=== PATIENT | female | born 1970 ===

== ENCOUNTER 2016-11-25 17:52 | Emergency (ER) | payer OTHER ==
[2016-11-25 17:52] VITALS: BMI 35.4
[2016-11-25] MEDS ORDERED: Iohexol 240 (50 ml) PO STA (18:37)
[2016-11-25] MEDS ORDERED: Sodium Chloride 0.9% 1,000 ML IV ONE (18:37)
[2016-11-25] MEDS ORDERED: Iohexol 240 (50 ml) ONE (19:05)
[2016-11-25 19:25] LABS: RBC URINE 15 /hpf (0-3); URINE BACTERIA RARE (<OCC); URINE BILIRUBIN NEGATIVE (NEGATIVE); URINE BLOOD 2+ (NEGATIVE); URINE COLOR Yellow (YELLOW); URINE GLUCOSE (UA) NORMAL (Normal); URINE KETONE NEGATIVE (NEGATIVE); URINE PROTEIN NEGATIVE (NEGATIVE); URINE UROBILINOGEN NORMAL mg/dL (0.2-1.0); WBC URINE 3 /hpf (0-5)
[2016-11-25 19:28] LABS: URINE LEUKOCYTE ESTERASE NEGATIVE Leu/uL (Negative)
[2016-11-25] MEDS ORDERED: Sodium Chloride 0.9% 1,000 ML ONE (19:35)
[2016-11-25 19:51] LABS: BASO # 0.1 K/uL (0.0-0.2); BASO % 0.7 % (0.0-2.0); EOS # 0.2 K/uL (0.0-0.7); HEMATOCRIT 40.8 % (34.0-47.0); LYMPH % 35.9 % (20.0-40.0); MEAN CELL VOLUME 80.8 fL (81.0-99.0); MEAN CORPUSCULAR HGB CONC 34.7 g/dL (33.0-37.0); MEAN PLATELET VOLUME 7.8 fL (7.2-11.7); MONO # 0.6 K/uL (0.0-0.8); MONO % 7.3 % (0.0-10.0); NRBC % 0.1 % (0.0-2.0); RED CELL DISTRIBUTION WIDTH 14.5 % (11.5-14.5); WHITE BLOOD COUNT 8.2 K/uL (4.8-10.8)
[2016-11-25 19:56] VITALS: RESP 18
[2016-11-25 19:58] LABS: CHLORIDE 103 mmol/L (98-107); POTASSIUM 3.8 mmol/L (3.6-5.2); SODIUM 140 mmol/L (132-148)
[2016-11-25 20:00] LABS: ALB/GLOB RATIO 1.2 (1.0-2.1); ALKALINE PHOSPHATASE 88 U/L (38-126); AST/SGOT 32 U/L (14-36); BILIRUBIN,TOTAL 0.9 mg/dL (0.2-1.3); CARBON DIOXIDE 24 mmol/L (22-30); GFR AFRICAN-AMERICAN > 60; TOTAL PROTEIN 7.5 g/dL (6.3-8.3)
[2016-11-25 20:01] LABS: ALT/SGPT 65 U/L (9-52); BLOOD UREA NITROGEN 11 mg/dL (7-17); CALCIUM 9.3 mg/dl (8.6-10.4); GLUCOSE,RANDOM 83 mg/dL (65-105)
[2016-11-25] MEDS ORDERED: Iohexol 350mg/ml 100 ML ONE (20:22)
--- NOTE | 2016-11-25 21:07 | C.PDOC ---
History Of Present Illness 46 year old female presents to the ED with complaints of left sided abdominal pain with associated mild nausea for two says. Patient notes a slight decrease in PO intake and denies dysuria, hematuria, fever, cough, or vomiting. Time Seen by Provider: 11/25/16 18:25 Chief Complaint (Nursing): Abdominal Pain History Per: Patient History/Exam Limitations: no limitations Onset/Duration Of Symptoms: Days (2 days ) Current Symptoms Are (Timing): Still Present Location Of Pain/Discomfort: LUQ, LLQ Radiation Of Pain To:: None Quality Of Discomfort: "Pain" Associated Symptoms: Nausea. denies: Fever, Chills, Vomiting Recent travel outside of the [place]: No Abnormal Vaginal Bleeding: No Past Medical History Reviewed: Historical Data, Nursing Documentation, Vital Signs Vital Signs: Last Vital Signs Temp 97.7 F 11/25/16 22:10 Pulse 67 11/25/16 22:10 Resp 18 11/25/16 22:10 BP 155/84 H 11/25/16 22:10 Pulse Ox 98 11/25/16 22:10 - Medical History PMH: Pancreatitis Surgical History: Appendectomy, Cholecystectomy Family History: States: Unknown Family Hx - Social History Hx Alcohol Use: No Hx Substance Use: No - Immunization History Hx Tetanus Toxoid Vaccination: No Hx Influenza Vaccination: No Hx Pneumococcal Vaccination: No Review Of Systems Constitutional: Positive for: Other (Slight decrease in PO intake ). Negative for: Fever, Chills Cardiovascular: Negative for: Chest Pain Respiratory: Negative for: Cough, Shortness of Breath Gastrointestinal: Positive for: Nausea. Negative for: Vomiting Genitourinary: Negative for: Dysuria, Hematuria Physical Exam - Physical Exam Appears: Non-toxic, No Acute Distress Skin: Warm, Dry Head: Atraumatic Eye(s): bilateral: Normal Inspection Oral Mucosa: Moist Neck: Supple Chest: Symmetrical, No Deformity Cardiovascular: Rhythm Regular Respiratory: Normal Breath Sounds, No Rales, No Rhonchi, No Wheezing Gastrointestinal/Abdominal: Soft, Tenderness (left sided abdominal tenderness), No Distention, No Guarding, No Rebound ED Course And Treatment - Laboratory Results Result Diagrams: 11/25/16 19:42 11/25/16 19:42 O2 Sat by Pulse Oximetry: 100 (room air ) - CT Scan/US Abdomen Pelvis CT Other Rad Studies (CT/US): Read By Radiologist, Radiology Report Reviewed Progress Note: Abdomen Pelvis CT and urine culture were ordered. Patient was given Pepcid, Zofran, Iohexol, and IV fluids. Disposition - Disposition Referrals: Janet Kilpatrick, [Non-Staff] - Disposition: HOME/ ROUTINE Disposition Time: 21:40 Condition: GOOD Additional Instructions: Thank you for letting us take care of you today. Your provider was Dr. Dos Santos. You were treated for abdominal pain. The emergency medical care you received today was directed at your acute symptoms. If you were prescribed any medication, please fill it and take as directed. It may take several days for your symptoms to resolve. Return to the Emergency Department if your symptoms worsen, do not improve, or if you have any other problems. Please contact your doctor or call one of the physicians/clinics you have been referred to that are listed on the Patient Visit Information form that is included in your discharge packet. Bring any paperwork you were given at discharge with you along with any medications you are taking to your follow up visit. Our treatment cannot replace ongoing medical care by a primary care provider (PCP) outside of the emergency department. Thank you for allowing [facility] to [facility] of your care today. Follow up with your doctor in 2-3 days for re-evaluation and further management. Prescriptions: Ranitidine HCl [Zantac] 150 mg PO BID #20 tablet Instructions: Abdominal Pain (ED) Forms: Gen Discharge Inst Vietnamese Print Language: GUAMANIAN - Clinical Impression Clinical Impression: Abdominal pain - Scribe Statement The provider has reviewed the documentation as recorded by the Scribe Madyson Moyer All medical record entries made by the Jazminibharry were at my direction and personally dictated by me. I have reviewed the chart and agree that the record accurately reflects my personal performance of the history, physical exam, medical decision making, and the department course for this patient. I have also personally directed, reviewed, and agree with the discharge instructions and disposition.
--- NOTE | 2016-11-25 21:38 | CT ---
EXAM: CT Abdomen and Pelvis With Intravenous Contrast CLINICAL HISTORY: 46 years old, female; Pain; Abdominal pain; Flank; Left upper quadrant (luq); Additional info: Left sided abdominal pain (luq>llq) TECHNIQUE: Axial computed tomography images of the abdomen and pelvis with intravenous contrast. All CT scans at this facility use one or more dose reduction techniques, viz.: automated exposure control; ma/kV adjustment per patient size (including targeted exams where dose is matched to indication; i.e. head); or iterative reconstruction technique. Coronal and sagittal reformatted images were created and reviewed. CONTRAST: 100 mL of VISIPAQUE 320 administered intravenously. COMPARISON: No relevant prior studies available. FINDINGS: Lower thorax: Mild cardiomegaly. ABDOMEN: Liver: Mild fatty infiltration. Gallbladder and bile ducts: Cholecystectomy. No ductal dilation. Pancreas: No ductal dilation. No mass. Spleen: No splenomegaly. Adrenals: No mass. Kidneys and ureters: No mass. No hydronephrosis. Stomach and bowel: Descending and distal transverse colon within RIGHT abdomen. No definite mural thickening. No obstruction. Appendix: No findings to suggest acute appendicitis. PELVIS: Bladder: Unremarkable. Reproductive: Hysterectomy. 1.8 x 1.8 x 1.7 cm hypodense lesion within LEFT ovary. ABDOMEN and PELVIS: Intraperitoneal space: No significant fluid collection. No free air. Bones/joints: No acute fracture. Soft tissues: Small ventral hernia through RIGHT rectus abdominis muscle containing fat. Partial atrophy of RIGHT rectus abdominis muscle. Vasculature: Unremarkable. No aneurysm. Lymph nodes: No pathologically enlarged lymph nodes. IMPRESSION: 1. Probable LEFT ovarian cyst. Consider ultrasound. 2. Incidental/non-acute findings are described above.
[2016-11-25 22:11] VITALS: BP 155/84; PULSE 67; TEMP 97.7
[2016-11-25 22:36] VITALS: O2SAT 100
== END 2016-11-25 22:15 | disposition home or self-care (01) ==
LOC: C.ER 17:52
DX: R10.9 Unspecified abdominal pain (principal)
CPT/HCPCS: 74177; 80053; 81001; 83690; 85025; 87086; 96361; 96374; 96375; 99285; J2405; J7040; Q9966; Q9967

== ENCOUNTER 2016-12-26 15:56 | Emergency (ER) | payer OTHER ==
[2016-12-26 15:56] VITALS: BMI 35.4
[2016-12-26] MEDS ORDERED: Sodium Chloride 0.9% 1,000 ML ONE (16:53)
[2016-12-26] MEDS ORDERED: Sodium Chloride 0.9% 1,000 ML IV ONE (17:05)
[2016-12-26] MEDS ORDERED: Morphine 4 MG/ML VIAL ONE (17:11)
[2016-12-26 17:12] LABS: BASO # 0.1 K/uL (0.0-0.2); BASO % 0.6 % (0.0-2.0); EOS # 0.1 K/uL (0.0-0.7); EOS % 0.8 % (0.0-4.0); HEMATOCRIT 39.2 % (34.0-47.0); LYMPH # 2.5 K/uL (1.0-4.3); LYMPH % 31.1 % (20.0-40.0); MEAN CELL VOLUME 82.7 fL (81.0-99.0); MEAN CORPUSCULAR HEMOGLOBIN 28.8 pg (27.0-31.0); MEAN CORPUSCULAR HGB CONC 34.8 g/dL (33.0-37.0); MEAN PLATELET VOLUME 8.2 fL (7.2-11.7); MONO # 0.8 K/uL (0.0-0.8); MONO % 9.4 % (0.0-10.0); NRBC % 0.1 % (0.0-2.0); RED CELL DISTRIBUTION WIDTH 14.5 % (11.5-14.5); WHITE BLOOD COUNT 8.2 K/uL (4.8-10.8)
[2016-12-26 17:18] LABS: CHLORIDE 103 mmol/L (98-107); POTASSIUM 3.5 mmol/L (3.6-5.2); SODIUM 138 mmol/L (132-148)
[2016-12-26 17:20] LABS: BILIRUBIN,TOTAL 0.5 mg/dL (0.2-1.3); GFR AFRICAN-AMERICAN > 60
[2016-12-26 17:21] LABS: ALB/GLOB RATIO 1.4 (1.0-2.1); ALKALINE PHOSPHATASE 55 U/L (38-126); ALT/SGPT 43 U/L (9-52); AST/SGOT 24 U/L (14-36); BLOOD UREA NITROGEN 9 mg/dL (7-17); CALCIUM 8.7 mg/dl (8.6-10.4); CARBON DIOXIDE 21 mmol/L (22-30); GLUCOSE,RANDOM 89 mg/dL (65-105)
--- NOTE | 2016-12-26 17:32 | C.PDOC ---
History Of Present Illness 46 yr old female presents to the ER with complaints of abdominal pain with nausea and diarrhea since yesterday. Patient reports she has history of chronic Pancreatitis, states the pain feels similar. Patient denies fever, chills, chest pain, SOB, nausea, vomiting, dysuria, incontinence, weakness or numbness. Time Seen by Provider: 12/26/16 16:37 Chief Complaint (Nursing): Abdominal Pain History Per: Patient History/Exam Limitations: no limitations Onset/Duration Of Symptoms: Days (1) Current Symptoms Are (Timing): Still Present Past Medical History Reviewed: Historical Data, Nursing Documentation, Vital Signs Vital Signs: Last Vital Signs Temp 98.8 F 12/26/16 16:17 Pulse 87 12/26/16 16:17 Resp 18 12/26/16 16:17 BP 164/96 H 12/26/16 16:17 Pulse Ox 99 12/26/16 17:35 - Medical History PMH: Pancreatitis Surgical History: Appendectomy, Cholecystectomy Family History: States: No Known Family Hx - Social History Hx Alcohol Use: No Hx Substance Use: No - Immunization History Hx Tetanus Toxoid Vaccination: No Hx Influenza Vaccination: No Hx Pneumococcal Vaccination: No Review Of Systems Except As Marked, All Systems Reviewed And Found Negative. Constitutional: Negative for: Fever, Chills Cardiovascular: Negative for: Chest Pain Respiratory: Negative for: Shortness of Breath Gastrointestinal: Positive for: Abdominal Pain. Negative for: Nausea, Vomiting Genitourinary: Negative for: Dysuria, Incontinence Neurological: Negative for: Weakness, Numbness Physical Exam - Physical Exam Appears: Non-toxic, In Acute Distress (Mild pain) Skin: Warm, Dry, No Rash Head: Atraumatic, Normacephalic Chest: Symmetrical, No Tenderness Cardiovascular: Rhythm Regular, No Murmur Respiratory: Normal Breath Sounds, No Rales, No Rhonchi, No Wheezing Gastrointestinal/Abdominal: Soft, Tenderness (Epigastric and LUQ tenderness. ), No Guarding, No Rebound, Other ((-) Ventura signs) Back: Normal Inspection, No CVA Tenderness Extremity: Normal ROM, No Swelling Neurological/Psych: Oriented x3, Normal Speech, Normal Motor, Normal Sensation ED Course And Treatment - Laboratory Results Result Diagrams: 12/26/16 17:00 12/26/16 17:00 O2 Sat by Pulse Oximetry: 99 (RA) Pulse Ox Interpretation: Normal Progress Note: PLAN: CBC, CMP, HCG, Urinalysis, Morphine IVP, Zofran IVP & Sodium Chloride IV. Disposition Counseled Patient/Family Regarding: Studies Performed, Diagnosis, Need For Followup, Rx Given - Disposition Referrals: Angel Luis Bledsoe MD [Medical Doctor] - Disposition: HOME/ ROUTINE Disposition Time: 18:50 Condition: STABLE Additional Instructions: SEGUIMIENTO CON ALONSO MDICO EN 1-2 LAI USE EL MEDICAMENTO DEL DOLOR STEFANO SE NECESITA BEBER MUCHO LQUIDO REGRESE A LA HABITACIN DE EMERGENCIA SI VIOLETA SNTOMAS EMPEORARAN Prescriptions: Acetaminophen with Codeine [Tylenol with Codeine #3 Tablet] 1 each PO Q6 PRN # 12 tablet PRN Reason: pain Instructions: Abdominal Pain (ED) Forms: [employer] (Congolese) Print Language: THAI - POA Present On Arrival: None - Clinical Impression Clinical Impression: Chronic pancreatitis - Scribe Statement The provider has reviewed the documentation as recorded by the Jazminibharry Pryor Provider Attestation: All medical record entries made by the Scribe were at my direction and personally dictated by me. I have reviewed the chart and agree that the record accurately reflects my personal performance of the history, physical exam, medical decision making, and the department course for this patient. I have also personally directed, reviewed, and agree with the discharge instructions and disposition.
[2016-12-26 17:34] LABS: RBC URINE 18 /hpf (0-3); URINE BACTERIA RARE (<OCC); URINE BILIRUBIN NEGATIVE (NEGATIVE); URINE BLOOD 2+ (NEGATIVE); URINE COLOR Yellow (YELLOW); URINE GLUCOSE (UA) NORMAL (Normal); URINE KETONE NEGATIVE (NEGATIVE); URINE LEUKOCYTE ESTERASE NEG Leu/uL (Negative); URINE PROTEIN NEGATIVE (NEGATIVE); URINE UROBILINOGEN NORMAL mg/dL (0.2-1.0); WBC URINE 1 /hpf (0-5)
[2016-12-26 18:58] VITALS: BP 144/91; PULSE 67; RESP 20; TEMP 97.7; O2SAT 100
== END 2016-12-26 18:58 | disposition home or self-care (01) ==
LOC: C.ER 15:56
DX: K86.1 Other chronic pancreatitis (principal)
CPT/HCPCS: 80053; 81001; 83690; 84703; 85025; 96361; 96374; 96375; 99285; J2270; J2405; J7040

== ENCOUNTER 2017-03-16 20:22 | Emergency (ER) | payer OTHER ==
[2017-03-16 20:22] VITALS: BMI 35.4
[2017-03-16] MEDS ORDERED: Sodium Chloride 0.9% 1,000 ML IV ONE (21:01)
[2017-03-16] MEDS ORDERED: Sodium Chloride 0.9% 1,000 ML ONE (21:02)
[2017-03-16] MEDS ORDERED: Morphine 4 MG/ML VIAL ONE (21:04)
[2017-03-16 21:14] LABS: BASO # 0.1 K/uL (0.0-0.2); BASO % 0.6 % (0.0-2.0); EOS # 0.1 K/uL (0.0-0.7); EOS % 0.8 % (0.0-4.0); HEMATOCRIT 43.8 % (34.0-47.0); LYMPH # 2.2 K/uL (1.0-4.3); LYMPH % 13.8 % (20.0-40.0); MEAN CELL VOLUME 82.2 fL (81.0-99.0); MEAN CORPUSCULAR HEMOGLOBIN 29.1 pg (27.0-31.0); MEAN CORPUSCULAR HGB CONC 35.4 g/dL (33.0-37.0); RED CELL DISTRIBUTION WIDTH 14.1 % (11.5-14.5); WHITE BLOOD COUNT 15.9 K/uL (4.8-10.8)
[2017-03-16 21:25] LABS: ALKALINE PHOSPHATASE 66 U/L (38-126); ALT/SGPT 56 U/L (9-52); AST/SGOT 45 U/L (14-36); BILIRUBIN,TOTAL 0.8 mg/dL (0.2-1.3); BLOOD UREA NITROGEN 14 mg/dL (7-17); CALCIUM 8.7 mg/dl (8.6-10.4); CARBON DIOXIDE 25 mmol/L (22-30); CHLORIDE 99 mmol/L (98-107); GFR AFRICAN-AMERICAN > 60; GLUCOSE,RANDOM 105 mg/dL (65-105); SODIUM 134 mmol/L (132-148)
[2017-03-16 21:27] LABS: ALB/GLOB RATIO 1.1 (1.0-2.1)
[2017-03-16 21:28] LABS: RBC URINE 14 /hpf (0-3); URINE BACTERIA MOD (<OCC); URINE BILIRUBIN NEGATIVE (NEGATIVE); URINE BLOOD 3+ (NEGATIVE); URINE COLOR Yellow (YELLOW); URINE GLUCOSE (UA) NORMAL (Normal); URINE KETONE TRACE mg/dL (NEGATIVE); URINE LEUKOCYTE ESTERASE NEG Leu/uL (Negative); URINE PROTEIN 1+ mg/dL (NEGATIVE); WBC URINE 3 /hpf (0-5)
--- NOTE | 2017-03-16 23:18 | CT ---
EXAM: CT Abdomen and Pelvis Without Intravenous Contrast CLINICAL HISTORY: 46 years old, female; Pain; Abdominal pain; Flank; Left lower quadrant (llq); Additional info: Luq/left flank pain. H/o pancreatitis. TECHNIQUE: Axial computed tomography images of the abdomen and pelvis without intravenous contrast. All CT scans at this facility use one or more dose reduction techniques, viz.: automated exposure control; ma/kV adjustment per patient size (including targeted exams where dose is matched to indication; i.e. head); or iterative reconstruction technique. Coronal and sagittal reformatted images were created and reviewed. COMPARISON: CT - ABD PELVIS PO IV CONTRAST 2016-11-25 20:58 FINDINGS: Lower thorax: Minimal atelectasis/scarring. ABDOMEN: Liver: Unremarkable. Gallbladder and bile ducts: Cholecystectomy. No significant ductal dilation. Pancreas: Unremarkable. No ductal dilation. Spleen: No splenomegaly. Adrenals: No mass. Kidneys and ureters: No renal calculi. No hydronephrosis. Stomach and bowel: Descending and distal transverse colon within right abdomen. Fluid within small bowel. Fluid/loose stool within colon. No definite mural thickening. No obstruction. Appendix: No findings to suggest acute appendicitis. PELVIS: Bladder: Unremarkable. No stones. Reproductive: Hysterectomy. 1.9 x 1.6 by 1.9 cm hypodense lesion within RIGHT ovary. ABDOMEN and PELVIS: Intraperitoneal space: No significant fluid collection. No free air. Bones/joints: No acute fracture. Soft tissues: Small ventral hernia containing fat. Partial atrophy of rectus abdominous muscle. Vasculature: Unremarkable. No aneurysm. Lymph nodes: No pathologically enlarged lymph nodes. IMPRESSION: 1. No definite CT evidence of urolithiasis. 2. Probable RIGHT ovarian cyst. Consider ultrasound. 3. Fluid/loose stool within bowel may suggest diarrhea illness. 4. Incidental/non-acute findings are described above.
--- NOTE | 2017-03-16 23:47 | C.PDOC ---
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 Limitations: language barrier Onset/Duration Of Symptoms: Days (1) Current Symptoms Are (Timing): Still Present Location Of Pain/Discomfort: LUQ, LLQ Radiation Of Pain To:: Back Quality Of Discomfort: Unable To Describe, "Pain" Associated Symptoms: Nausea, Vomiting, Diarrhea Alleviating Factors: None Last Bowel Movement: Today Additional History Per: Prior Records Past Medical History Reviewed: Historical Data, Nursing Documentation, Vital Signs Vital Signs: Last Vital Signs Temp 97.8 F 03/16/17 20:28 Pulse 98 H 03/16/17 20:28 Resp 18 03/16/17 20:28 BP 137/94 H 03/16/17 20:28 Pulse Ox 96 03/16/17 23:47 - Medical History PMH: Pancreatitis Surgical History: Appendectomy, Cholecystectomy Other Surgeries: Hysterectomy Family History: States: Unknown Family Hx - Social History Hx Alcohol Use: No Hx Substance Use: No - Immunization History Hx Tetanus Toxoid Vaccination: No Hx Influenza Vaccination: No Hx Pneumococcal Vaccination: No Review Of Systems Except As Marked, All Systems Reviewed And Found Negative. Constitutional: Positive for: Chills Cardiovascular: Negative for: Chest Pain Respiratory: Negative for: Shortness of Breath Gastrointestinal: Positive for: Nausea, Vomiting, Abdominal Pain, Diarrhea. Negative for: Melena, Hematochezia, Hematemesis Genitourinary: Positive for: Dysuria (?) Musculoskeletal: Positive for: Back Pain. Negative for: Neck Pain Skin: Negative for: Rash Neurological: Negative for: Weakness, Numbness Physical Exam - Physical Exam Appears: Non-toxic, No Acute Distress Skin: Normal Color, Warm, Dry, No Rash Head: Atraumatic, Normacephalic Eye(s): bilateral: PERRL, EOMI Neck: Normal ROM, Supple Cardiovascular: Rhythm Regular Respiratory: Normal Breath Sounds, No Accessory Muscle Use Gastrointestinal/Abdominal: Soft, Tenderness (left sided), No Guarding, No Rebound Extremity: Normal ROM Neurological/Psych: Oriented x3, Normal Motor, Normal Sensation ED Course And Treatment - Laboratory Results Result Diagrams: 03/16/17 21:11 03/16/17 21:11 O2 Sat by Pulse Oximetry: 96 Pulse Ox Interpretation: Normal - CT Scan/US CT abd/pelv Other Rad Studies (CT/US): Read By Radiologist, Radiology Report Reviewed CT/US Interpretation: IMPRESSION: 1. No definite CT evidence of urolithiasis. 2. Probable RIGHT ovarian cyst. Consider ultrasound. 3. Fluid/loose stool within bowel may suggest diarrhea illness. 4. Incidental/non-acute findings are described above. Progress - Interventions Interventions:: Observation, Intravenous fluid - Medications Administered Intravenous: Antiemetic, H-2 lauren, Opiate - Data Reviewed Data Reviewed: Lab, Diagnostic imaging, Old records - Patient Status Patient status: Mostly improved - Continuity of Care Discussed patient case with:: Patient, ED Nurse - Patient Plan Patient Plan: Discharge, F/U with PCP, Continue present meds Disposition Counseled Patient/Family Regarding: Studies Performed, Diagnosis, Need For Followup, Rx Given - Disposition Referrals: Angel Luis Bledsoe MD [Medical Doctor] - Disposition: HOME/ ROUTINE Disposition Time: 00:19 Condition: IMPROVED Additional Instructions: Drink plenty of fluids. Follow up with your doctor this week. Return to the ER if you develop fever, not tolerating fluids, bloody stools, worsening of symptoms or if you have any other concerns. Prescriptions: Dicyclomine [Bentyl] 20 mg PO QID PRN #20 tab PRN Reason: Irritable Bowel Symptoms Ondansetron [Zofran] 4 mg PO Q8H PRN #15 tab PRN Reason: Nausea/Vomiting Instructions: Gastroenteritis (ED) Forms: [employer] (Tuvaluan) Print Language: THAI - Clinical Impression Clinical Impression: Left sided abdominal pain, Nausea, vomiting, and diarrhea
[2017-03-17 00:46] VITALS: BP 130/90; PULSE 80; RESP 20; TEMP 98; O2SAT 98
== END 2017-03-17 00:45 | disposition home or self-care (01) ==
LOC: C.ER 20:22
DX: R10.12 Left upper quadrant pain (principal); R11.2 Nausea with vomiting, unspecified; R19.7 Diarrhea, unspecified
CPT/HCPCS: 74176; 80053; 81001; 83690; 85025; 87086; 96374; 96375; 99285; J2270; J2405; J7040

== ENCOUNTER 2017-05-29 09:49 | Emergency (ER) | payer OTHER ==
[2017-05-29 09:49] VITALS: BMI 35.4
[2017-05-29 10:04] VITALS: O2SAT 100
[2017-05-29] MEDS ORDERED: Sodium Chloride 0.9% 1,000 ML IV ONE (11:06)
[2017-05-29 11:17] LABS: BASO % 0.6 % (0.0-2.0); EOS # 0.1 K/uL (0.0-0.7); EOS % 1.2 % (0.0-4.0); HEMOGLOBIN 14.9 g/dL (11.0-16.0); LYMPH # 2.3 K/uL (1.0-4.3); LYMPH % 37.1 % (20.0-40.0); MEAN CELL VOLUME 82.5 fL (81.0-99.0); MEAN CORPUSCULAR HEMOGLOBIN 29.1 pg (27.0-31.0); MEAN CORPUSCULAR HGB CONC 35.3 g/dL (33.0-37.0); MEAN PLATELET VOLUME 8.2 fL (7.2-11.7); MONO # 0.6 K/uL (0.0-0.8); MONO % 8.9 % (0.0-10.0); NEUT # 3.2 K/uL (1.8-7.0); NEUT % 52.2 % (50.0-75.0); RBC 5.11 Mil/uL (3.80-5.20); RED CELL DISTRIBUTION WIDTH 14.2 % (11.5-14.5); WHITE BLOOD COUNT 6.2 K/uL (4.8-10.8)
[2017-05-29] MEDS ORDERED: Sodium Chloride 0.9% 1,000 ML ONE (11:17)
[2017-05-29 11:20] LABS: HCG,QUALITATIVE URINE NEGATIVE (NEGATIVE)
[2017-05-29 11:29] LABS: SQUAMOUS EPITHIAL 12 /hpf (0-5); URINE BACTERIA MANY (<OCC); URINE BILIRUBIN NEGATIVE (NEGATIVE); URINE BLOOD 2+ (NEGATIVE); URINE CLARITY Hazy (Clear); URINE GLUCOSE (UA) NORMAL (Normal); URINE LEUKOCYTE ESTERASE NEG Leu/uL (Negative); URINE NITRATE NEGATIVE (NEGATIVE); URINE PROTEIN NEGATIVE (NEGATIVE); URINE UROBILINOGEN NORMAL mg/dL (0.2-1.0)
--- NOTE | 2017-05-29 11:29 | C.PDOC ---
History Of Present Illness 46 year old female with a past medical history of pancreatitis who presents to the emergency department with a complaint of an abdominal pain, diarrhea, and nausea x2 days. Associated with a headache and loss of appetite. Reports she follows up with the [facility]. Denies history of abdominal surgery, chest pain, shortness of breath, and urinary symptoms. Time Seen by Provider: 05/29/17 10:23 Chief Complaint (Nursing): Abdominal Pain History Per: Patient History/Exam Limitations: no limitations Onset/Duration Of Symptoms: Days Past Medical History Reviewed: Historical Data, Nursing Documentation, Vital Signs Vital Signs: Last Vital Signs Temp 97.7 F 05/29/17 12:22 Pulse 64 05/29/17 12:22 Resp 18 05/29/17 12:22 BP 157/82 H 05/29/17 12:22 Pulse Ox 100 05/29/17 13:10 - Medical History PMH: Pancreatitis Denies: Chronic Kidney Disease Surgical History: Appendectomy, Cholecystectomy Family History: States: Unknown Family Hx - Social History Hx Alcohol Use: No Hx Substance Use: No - Immunization History Hx Tetanus Toxoid Vaccination: No Hx Influenza Vaccination: No Hx Pneumococcal Vaccination: No Review Of Systems Except As Marked, All Systems Reviewed And Found Negative. (As per HPI, otherwise negative) Constitutional: Positive for: Other (Loss of appetite) Cardiovascular: Negative for: Chest Pain Respiratory: Negative for: Shortness of Breath Gastrointestinal: Positive for: Nausea, Abdominal Pain, Diarrhea Genitourinary: Negative for: Dysuria, Frequency, Incontinence, Hematuria Neurological: Positive for: Headache Physical Exam - Physical Exam Appears: Well, Non-toxic Skin: Normal Color, Warm, Dry Cardiovascular: Rhythm Regular, No Murmur Respiratory: Normal Breath Sounds, No Decreased Breath Sounds, No Accessory Muscle Use, No Rhonchi Gastrointestinal/Abdominal: No Normal Exam, Bowel Sounds (Positive), Soft, Tenderness (epigastric and LUQ), No Guarding, No Rebound Neurological/Psych: Oriented x3 Gait: Steady ED Course And Treatment - Laboratory Results Result Diagrams: 05/29/17 11:11 05/29/17 11:11 ECG Rhythm: Sinus Rhythm (Normal 80 bpm. Normal interval. Normal axis. ), Nonspecific Changes (ST or T wave changes) O2 Sat by Pulse Oximetry: 100 (RA) Pulse Ox Interpretation: Normal Medical Decision Making Medical Decision Making: Time: 1100 EKG CMP Lipase Troponin I CBC w/ diff Pantoprazole 40 mg IVP Sodium Chloride 1L IV Toradol 30 mg IVP Urine Preg Urinalysis Obstructive series Reevaluation Time: 1215 --Obstructive series x-ray FINDINGS: CHEST: Lungs: Clear. Cardiovascular: Normal size heart. No pulmonary vascular congestion. Pleura: No pleural fluid. No pneumothorax. Other findings: None. ABDOMEN AND PELVIS: Bowel: Unremarkable bowel gas pattern. No evidence of mechanical obstruction. Free air: None. Bones: Unremarkable. Other findings: Right upper quadrant surgical clips. IMPRESSION: Unremarkable radiographs of chest and abdomen. No evidence of mechanical bowel obstruction. patient states improvement. Will discharge home to follow up with pmd in 2 days. Disposition - Disposition Referrals: Angel Luis Bledsoe MD [Medical Doctor] - Disposition: HOME/ ROUTINE Disposition Time: 13:09 Condition: STABLE Additional Instructions: follow up with your doctor or medical clinic in 2 days call to make an appointment take medication as prescribed return to ER if symptoms worsens or progress Prescriptions: Ondansetron ODT [Zofran ODT] 4 mg PO TID PRN #12 odt PRN Reason: Nausea/Vomiting traMADol [Ultram] 50 mg PO TID PRN #12 tab PRN Reason: Pain, Moderate (4-7) Instructions: Acute Abdomen (Belly Pain), Adult (DC) Forms: Gen Discharge Inst Albanian, [employer] (Albanian) Print Language: MACEDONIAN - Clinical Impression Clinical Impression: Abdominal pain - Scribe Statement Katarina Hull
[2017-05-29 11:33] LABS: URINE COLOR YELLOW (YELLOW)
[2017-05-29 11:38] LABS: ALB/GLOB RATIO 1.3 (1.0-2.1); ALBUMIN 4.6 g/dL (3.5-5.0); ALT/SGPT 70 U/L (9-52); AST/SGOT 57 U/L (14-36); BLOOD UREA NITROGEN 11 mg/dL (7-17); CALCIUM 9.4 mg/dl (8.6-10.4); GFR AFRICAN-AMERICAN > 60; GFR NON-AFRICAN AMERICAN > 60; LIPASE 100 U/L (23-300)
--- NOTE | 2017-05-29 12:17 | RAD ---
PROCEDURE: Radiographs of the chest and abdomen (obstructive series) HISTORY: abd. pain COMPARISON: Chest radiograph dated 12/13/2015; CT scan of the abdomen and pelvis dated 03/16/2017. TECHNIQUE: AP radiograph of the chest, with upright and supine radiographs of the abdomen. FINDINGS: CHEST: Lungs: Clear. Cardiovascular: Normal size heart. No pulmonary vascular congestion. Pleura: No pleural fluid. No pneumothorax. Other findings: None. ABDOMEN AND PELVIS: Bowel: Unremarkable bowel gas pattern. No evidence of mechanical obstruction. Free air: None. Bones: Unremarkable. Other findings: Right upper quadrant surgical clips. IMPRESSION: Unremarkable radiographs of chest and abdomen. No evidence of mechanical bowel obstruction.
[2017-05-29 12:23] VITALS: BP 157/82; PULSE 64; RESP 18; TEMP 97.7
== END 2017-05-29 13:35 | disposition home or self-care (01) ==
LOC: C.ER 09:49
DX: R10.9 Unspecified abdominal pain (principal)
CPT/HCPCS: 74022; 80053; 81001; 83690; 84484; 84703; 85025; 96361; 96374; 96375; 99285; C9113; J1885; J7040

== ENCOUNTER 2017-10-28 18:18 | Emergency (ER) | payer OTHER ==
[2017-10-28 18:25] VITALS: BMI 36.2
[2017-10-28 19:13] LABS: SQUAMOUS EPITHIAL 2 /hpf (0-5); URINE BACTERIA RARE (<OCC); URINE BILIRUBIN NEGATIVE (NEGATIVE); URINE BLOOD 2+ (NEGATIVE); URINE CLARITY Clear (Clear); URINE COLOR Yellow (YELLOW); URINE GLUCOSE (UA) NORMAL (Normal); URINE LEUKOCYTE ESTERASE NEG Leu/uL (Negative); URINE PROTEIN NEGATIVE (NEGATIVE); URINE UROBILINOGEN NORMAL mg/dL (0.2-1.0)
[2017-10-28 19:14] LABS: HCG,QUALITATIVE URINE NEGATIVE (NEGATIVE)
[2017-10-28] MEDS ORDERED: Sodium Chloride 0.9% 1,000 ML IV ONE (19:39)
--- NOTE | 2017-10-28 19:39 | C.PDOC ---
History Of Present Illness 47 year old female with PMHx of pancreatitis presents to the ED c/o epigastric abdominal pain that started today at 14:30. Patient states with her pain she had associated diarrhea and nausea. Patient has multiple visits to the ED for similar symptoms in the past. Patient denies fever, chills, vomit, back pain, dysuria, hemturia. Time Seen by Provider: 10/28/17 19:19 Chief Complaint (Nursing): Abdominal Pain History Per: Patient History/Exam Limitations: no limitations Onset/Duration Of Symptoms: Hrs (14:30) Current Symptoms Are (Timing): Still Present Severity: Moderate Location Of Pain/Discomfort: Epigastric Radiation Of Pain To:: None Quality Of Discomfort: "Pain" Associated Symptoms: Nausea, Diarrhea Alleviating Factors: None Recent travel outside of the [place]: No Additional History Per: Patient Abnormal Vaginal Bleeding: No Past Medical History Reviewed: Historical Data, Nursing Documentation, Vital Signs Vital Signs: Last Vital Signs Temp 98.4 F 10/28/17 18:25 Pulse 73 10/28/17 18:25 Resp 18 10/28/17 18:25 BP 137/87 10/28/17 18:25 Pulse Ox 98 10/28/17 21:37 - Medical History PMH: Pancreatitis Denies: Chronic Kidney Disease Surgical History: Appendectomy, Cholecystectomy Family History: States: Unknown Family Hx - Social History Hx Alcohol Use: No Hx Substance Use: No - Immunization History Hx Tetanus Toxoid Vaccination: No Hx Influenza Vaccination: No Hx Pneumococcal Vaccination: No Review Of Systems Constitutional: Negative for: Fever, Chills Cardiovascular: Negative for: Chest Pain, Palpitations Respiratory: Negative for: Cough, Shortness of Breath Gastrointestinal: Positive for: Nausea, Abdominal Pain, Diarrhea Genitourinary: Negative for: Dysuria, Hematuria Musculoskeletal: Negative for: Back Pain Skin: Negative for: Rash Physical Exam - Physical Exam Appears: Non-toxic, No Acute Distress, Other (anicteric) Skin: Normal Color, Warm, Dry Head: Atraumatic, Normacephalic Eye(s): bilateral: Normal Inspection Oral Mucosa: Moist Neck: Normal ROM, Supple Chest: Symmetrical Cardiovascular: Rhythm Regular Respiratory: Normal Breath Sounds, No Rales, No Rhonchi, No Wheezing Gastrointestinal/Abdominal: Soft, Tenderness (moderate epigastric ), No Guarding , No Rebound Extremity: Normal ROM, No Tenderness, No Swelling Neurological/Psych: Oriented x3, Normal Speech Gait: Steady ED Course And Treatment - Laboratory Results Result Diagrams: 10/28/17 19:46 10/28/17 19:46 ECG: Interpreted By Me, Viewed By Me ECG Rhythm: Sinus Rhythm ECG Interpretation: Normal Rate From EC (BPM) O2 Sat by Pulse Oximetry: 98 (ON RA) Pulse Ox Interpretation: Normal - CT Scan/US CT abd/pelvis Other Rad Studies (CT/US): Read By Radiologist, Radiology Report Reviewed CT/US Interpretation: EXAM: CT Abdomen and Pelvis With Intravenous Contrast. EXAM DATE/TIME: 10/28/17 (7:39pm). CLINICAL HISTORY: 47 year old female with epigastric pain. History of pancreatitis. Previous appendectomy and. cholecystectomy. TECHNIQUE: Axial computed tomography images of the abdomen and pelvis with intravenous contrast. All CT scans at this facility use at least one of these dose optimization techniques: automated. exposure control; mA and/or kV adjustment per patient size (includes targeted exams where dose is. matched to clinical indication); or iterative reconstruction. Coronal and sagittal reformatted images were created and reviewed. CONTRAST: 100 mL of Visipaque administered intravenously. COMPARISON: No relevant prior studies available. FINDINGS: Lung bases: Unremarkable. No mass nor consolidation. No pleural effusions. ABDOMEN: Liver: Unremarkable. No solid mass. Gallbladder and bile ducts: Unremarkable. No calcified stones. No ductal dilatation. Pancreas: Unremarkable. No mass. No ductal dilatation. Spleen: Unremarkable. No splenomegaly. Adrenals: Unremarkable. No mass. Kidneys and ureters: Unremarkable. No solid mass. No hydronephrosis. Stomach and bowel: Unremarkable. No bowel obstruction. No mucosal thickening. LILA DENG | Preliminary Radiology Report. CONFIDENTIALITY STATEMENT. This report is intended only for the use of the referring physician, and only in accordance with law, If you received this in error, call [phone]. Page 2 of 2. PELVIS: Appendix: Previous appendectomy (as per the history provided). Bladder: Unremarkable. No mass. Reproductive: Unremarkable as visualized. ABDOMEN and PELVIS: Intraperitoneal space: Unremarkable. No free air. No significant fluid collection. Bones/joints : No acute fracture nor dislocation. Soft tissues: Unremarkable. Vasculature: Unremarkable. No abdominal aortic aneurysm. Lymph nodes: Unremarkable. No enlarged lymph nodes. IMPRESSION: No acute pathology. Previous cholecystectomy and appendectomy. No definite CT evidence of pancreatitis. Thank you for allowing us to participate in the care of your patient. Dictated and Authenticated by: Vinita Samayoa MD. 10/28/2017 9:35 PM Eastern Time ([place] & [place]) Progress - Re-Evaluation Re-evaluation Note: 10/28/17 22:09 ABD PAIN RESOLVED, NO NV. VSS APPEARS COMFORTABLE. CT REPORT REVIEWED - Data Reviewed Data Reviewed: Lab, Diagnostic imaging, EKG, Old records Medical Decision Making Medical Decision Making: Impression: abdominal pain, PMHx pancreatitis Plan: * CT abd/pelvis * EKG * Labs * Morphine 4 mg IVP * IV fluids * Zofran 4 mg IVP * UA Disposition Counseled Patient/Family Regarding: Studies Performed, Diagnosis, Need For Followup - Disposition Referrals: YOUR,PMD [Other] Disposition: HOME/ ROUTINE Disposition Time: 22:09 Condition: IMPROVED Instructions: Acute Abdomen (Belly Pain), Adult (DC) Forms: [employer] ([employer]), Work Excuse Print Language: PARAGUAYAN - Clinical Impression Clinical Impression: Abdominal pain - Scribe Statement The provider has reviewed the documentation as recorded by the Scribe Gopi Dial All medical record entries made by the Scribe were at my direction and personally dictated by me. I have reviewed the chart and agree that the record accurately reflects my personal performance of the history, physical exam, medical decision making, and the department course for this patient. I have also personally directed, reviewed, and agree with the discharge instructions and disposition.
[2017-10-28 19:49] LABS: BASO % 0.6 % (0.0-2.0); EOS # 0.2 K/uL (0.0-0.7); EOS % 2.7 % (0.0-4.0); HEMOGLOBIN 14.2 g/dL (11.0-16.0); LYMPH # 3.1 K/uL (1.0-4.3); LYMPH % 40.6 % (20.0-40.0); MEAN CELL VOLUME 82.6 fL (81.0-99.0); MEAN CORPUSCULAR HEMOGLOBIN 28.7 pg (27.0-31.0); MEAN CORPUSCULAR HGB CONC 34.8 g/dL (33.0-37.0); MEAN PLATELET VOLUME 8.2 fL (7.2-11.7); MONO # 0.7 K/uL (0.0-0.8); MONO % 8.7 % (0.0-10.0); NEUT # 3.7 K/uL (1.8-7.0); NEUT % 47.4 % (50.0-75.0); NRBC % 0.1 % (0.0-2.0); RBC 4.96 Mil/uL (3.80-5.20); RED CELL DISTRIBUTION WIDTH 14.1 % (11.5-14.5); WHITE BLOOD COUNT 7.7 K/uL (4.8-10.8)
[2017-10-28] MEDS ORDERED: Morphine 4 MG/ML VIAL ONE (19:50)
[2017-10-28] MEDS ORDERED: Sodium Chloride 0.9% 1,000 ML ONE (19:51)
[2017-10-28 20:02] LABS: ALB/GLOB RATIO 1.5 (1.0-2.1); ALBUMIN 4.5 g/dL (3.5-5.0); ALT/SGPT 52 U/L (9-52); AST/SGOT 25 U/L (14-36); BLOOD UREA NITROGEN 11 mg/dL (7-17); GFR AFRICAN-AMERICAN > 60; GFR NON-AFRICAN AMERICAN > 60; LIPASE 126 U/L (23-300)
[2017-10-28] MEDS ORDERED: Iodixanol 320 mg/ml 150 ml Bottle IV ONE (20:13)
[2017-10-28 22:25] VITALS: BP 129/86; PULSE 69; RESP 20; TEMP 97.9; O2SAT 97
--- NOTE | 2017-10-29 09:31 | CT ---
Date of service: 10/28/2017 PROCEDURE: CT Abdomen and Pelvis with contrast HISTORY: Epigastric pain HO PANCREATITIS COMPARISON: 03/16/2017. TECHNIQUE: CT scan of the abdomen and pelvis was performed after administration of intravenous contrast. Oral contrast was not administered. Coronal and sagittal reformatted images were obtained. Contrast dose: 100 mL Visipaque Radiation dose: Total exam DLP = 1141.12 mGy-cm. This CT exam was performed using one or more of the following dose reduction techniques: Automated exposure control, adjustment of the mA and/or kV according to patient size, and/or use of iterative reconstruction technique. FINDINGS: LOWER THORAX: The lung bases are clear. LIVER: Normal in size with homogeneous enhancement. No gross lesion or ductal dilatation. GALLBLADDER AND BILE DUCTS: Surgically absent. PANCREAS: Normal in size with homogeneous enhancement. No gross lesion or ductal dilatation. SPLEEN: Normal in size with homogeneous enhancement. ADRENALS: No discrete nodule. KIDNEYS AND URETERS: Normal in size with homogeneous enhancement. No hydronephrosis. No solid mass. VASCULATURE: No aortic aneurysm. BOWEL: The small bowel loops are normal in caliber. There is moderate amount of stool in the ascending and transverse colon. No bowel obstruction. APPENDIX: No inflammatory changes in the right lower quadrant. The appendix is not distinctly identified. PERITONEUM: No free fluid. No free air. LYMPH NODES: No enlarged lymph nodes. BLADDER: Grossly normal in appearance. REPRODUCTIVE: The uterus is surgically absent. BONES: No acute fracture. Within normal limits for the patient's age with OTHER FINDINGS: There is a small sliding hiatal hernia. IMPRESSION: No acute abdominal or pelvic abnormality. A preliminary report was provided by [employer].
--- NOTE | 2017-10-29 20:47 | CARD ---
APPROVED REPORT Date of service: 10/28/2017 EKG Measurement Heart [id number] [id number] <Conclusion> Normal sinus rhythm Normal ECG
== END 2017-10-28 22:25 | disposition home or self-care (01) ==
LOC: C.ER 18:18
DX: R10.13 Epigastric pain (principal)
CPT/HCPCS: 74177; 80053; 81001; 83690; 84703; 85025; 93005; 96374; 96375; 99285; J2270; J2405; J7030; Q9967

== ENCOUNTER 2018-03-31 19:06 | Emergency (ER) | payer OTHER ==
[2018-03-31 19:07] VITALS: BMI 36.2
[2018-03-31] MEDS ORDERED: Sodium Chloride 0.9% 1,000 ML IV ONE (19:39)
[2018-03-31 20:05] LABS: BASO # 0.1 K/uL (0.0-0.2); EOS # 0.1 K/uL (0.0-0.7); HEMOGLOBIN 14.8 g/dL (11.0-16.0); LYMPH # 2.8 K/uL (1.0-4.3); LYMPH % 43.2 % (20.0-40.0); MEAN CELL VOLUME 84.6 fL (81.0-99.0); MEAN CORPUSCULAR HEMOGLOBIN 29.1 pg (27.0-31.0); MEAN CORPUSCULAR HGB CONC 34.4 g/dL (33.0-37.0); MEAN PLATELET VOLUME 7.8 fL (7.2-11.7); MONO # 0.6 K/uL (0.0-0.8); MONO % 9.3 % (0.0-10.0); NEUT # 2.9 K/uL (1.8-7.0); NEUT % 44.5 % (50.0-75.0); NRBC % 0.1 % (0.0-2.0); RBC 5.09 Mil/uL (3.80-5.20); RED CELL DISTRIBUTION WIDTH 13.9 % (11.5-14.5); WHITE BLOOD COUNT 6.5 K/uL (4.8-10.8)
--- NOTE | 2018-03-31 20:05 | C.PDOC ---
History Of Present Illness History obtained using school clerk. 47 year old female presents to the ED for evaluation of possible recurrent pancreatitis for past 2 days. Patient reports her pain is mostly in the LUQ with occasional radiation to her left flank ass ociated with nausea and vomiting. Patient states symptoms similar to prior episodes. Patient was seen on 10/2017 for same, patient subsequently followed up at [place]. Patient s/p pancreas biopsy states "They said it's chronic pancreatitis". Patient denies fever, chills, diarrhea, back pain, rash, dysuria, hematuria, weakness, numbness. VIA TRANS POSSIBLE RECUR PANCREATITIS X 2 DAYS. LUQ OCC RADIATION L FLANK, SIM TO PRIOR EPISODES. +NV. SEEN 10/2017 FOR SAME, PS SUBSEQUENTLY FU @ [facility] SP PANCREAS BIOPSY "THEY SAID IT'S CHRONIC PANCREATITIS". NO FEVER. EXAM MILD DIST HEENT ANICTERIC MMM ABD +MILD EPIG TEND SOFT NO R/G REMAINDER NEG Time Seen by Provider: 03/31/18 19:39 Chief Complaint (Nursing): Abdominal Pain History Per: Patient History/Exam Limitations: no limitations Onset/Duration Of Symptoms: Days (2) Current Symptoms Are (Timing): Still Present Location Of Pain/Discomfort: LUQ Radiation Of Pain To:: Flank Quality Of Discomfort: "Pain" Associated Symptoms: Nausea, Vomiting. denies: Diarrhea, Urinary Symptoms Recent travel outside of the [place]: No Additional History Per: Patient Abnormal Vaginal Bleeding: No Past Medical History Reviewed: Historical Data, Nursing Documentation, Vital Signs Vital Signs: Last Vital Signs Temp 98 F 03/31/18 19:27 Pulse 80 03/31/18 19:27 Resp 20 03/31/18 19:27 BP 136/78 03/31/18 19:27 Pulse Ox 97 03/31/18 19:27 - Medical History PMH: Pancreatitis Denies: Chronic Kidney Disease Surgical History: Appendectomy, Cholecystectomy Family History: States: Unknown Family Hx - Social History Hx Alcohol Use: No Hx Substance Use: No - Immunization History Hx Tetanus Toxoid Vaccination: No Hx Influenza Vaccination: No Hx Pneumococcal Vaccination: No Review Of Systems Constitutional: Negative for: Fever, Chills Cardiovascular: Negative for: Chest Pain Respiratory: Negative for: Shortness of Breath Gastrointestinal: Positive for: Nausea, Vomiting, Abdominal Pain. Negative for: Diarrhea Genitourinary: Negative for: Dysuria, Hematuria Musculoskeletal: Negative for: Back Pain Skin: Negative for: Rash Neurological: Negative for: Weakness, Numbness, Headache Physical Exam - Physical Exam Appears: Non-toxic, In Acute Distress (due to pain) Skin: Normal Color, Warm, Dry Head: Atraumatic, Normacephalic Eye(s): bilateral: Normal Inspection, Other (anicteric) Oral Mucosa: Moist Neck: Normal ROM, Supple Chest: Symmetrical Cardiovascular: Rhythm Regular Respiratory: Normal Breath Sounds, No Rales, No Rhonchi, No Wheezing Gastrointestinal/Abdominal: Soft, Tenderness (mild epigastric), No Guarding, No Rebound Back: No CVA Tenderness Extremity: Normal ROM, No Tenderness, No Swelling Neurological/Psych: Oriented x3, Normal Speech, Normal Cognition Gait: Steady ED Course And Treatment - Laboratory Results Result Diagrams: 03/31/18 20:03 03/31/18 20:03 O2 Sat by Pulse Oximetry: 97 (ON RA) Pulse Ox Interpretation: Normal Progress - Re-Evaluation Re-evaluation Note: 03/31/18 23:02 FEELS BETTER WISHES DC HOME - Data Reviewed Data Reviewed: Lab, Diagnostic imaging, Old records Medical Decision Making Medical Decision Making: Plan: * Labs * Morphine 4 mg IVP * IV fluids * UA Disposition Counseled Patient/Family Regarding: Studies Performed, Diagnosis, Need For Followup - Disposition Referrals: YOUR,PMD [Other] Disposition: HOME/ ROUTINE Disposition Time: 23:02 Condition: IMPROVED Prescriptions: Ondansetron ODT [Zofran ODT] 4 mg PO TID PRN #12 odt PRN Reason: Nausea/Vomiting oxyCODONE/Acetaminophen [Percocet 5/325 mg Tab] 1 ea PO QID #8 tab Instructions: Chronic Pancreatitis (DC) Forms: [employer]) (Bulgarian), Work Excuse Print Language: FAROESE - Clinical Impression Clinical Impression: Nausea, Vomiting, Abdominal pain, Chronic pancreatitis - Scribe Statement The provider has reviewed the documentation as recorded by the Scribharry Dial All medical record entries made by the Scribe were at my direction and pers onally dictated by me. I have reviewed the chart and agree that the record accurately reflects my personal performance of the history, physical exam, medical decision making, and the department course for this patient. I have also personally directed, reviewed, and agree with the discharge instructions and disposition.
[2018-03-31 20:09] LABS: SQUAMOUS EPITHIAL 2 /hpf (0-5); URINE BACTERIA RARE (<OCC); URINE BILIRUBIN NEGATIVE (NEGATIVE); URINE BLOOD 2+ (NEGATIVE); URINE CLARITY Clear (Clear); URINE COLOR Yellow (YELLOW); URINE GLUCOSE (UA) NORMAL (Normal); URINE LEUKOCYTE ESTERASE NEG Leu/uL (Negative); URINE PROTEIN NEGATIVE (NEGATIVE); URINE UROBILINOGEN NORMAL mg/dL (0.2-1.0)
[2018-03-31 20:20] LABS: ALB/GLOB RATIO 1.7 (1.0-2.1); ALBUMIN 4.7 g/dL (3.5-5.0); ALT/SGPT 37 U/L (9-52); AST/SGOT 35 U/L (14-36); BLOOD UREA NITROGEN 12 mg/dL (7-17); CALCIUM 8.8 mg/dl (8.6-10.4); GFR NON-AFRICAN AMERICAN > 60; LIPASE 163 U/L (23-300)
[2018-03-31] MEDS ORDERED: Morphine 4 MG/ML VIAL ONE (20:35)
[2018-03-31 23:23] VITALS: BP 128/82; PULSE 64; RESP 16; TEMP 98; O2SAT 100
== END 2018-04-01 00:14 | disposition home or self-care (01) ==
LOC: C.ER 19:06
DX: K86.1 Other chronic pancreatitis (principal); R11.2 Nausea with vomiting, unspecified; R10.9 Unspecified abdominal pain
CPT/HCPCS: 80053; 81001; 83690; 85025; 96361; 96374; 99284; J2270; J7030

== ENCOUNTER → 2018-07-05 | Outpatient (CLI) | payer OTHER | END | disposition home or self-care (01) | LOC: C.LAB 09:59 | DX: K86.81 Exocrine pancreatic insufficiency (principal) ==

== ENCOUNTER 2018-07-07 09:03 | Outpatient (CLI) | payer OTHER | END 2018-07-07 09:04 | disposition home or self-care (01) | LOC: C.LAB 09:03 | DX: K86.81 Exocrine pancreatic insufficiency (principal) ==